=== PATIENT | female | born 1980 | race Caucasian/White ===

== ENCOUNTER 2016-11-02 18:00 | Emergency (ER) | payer MEDICAID ==
[~2016-11-02] VITALS: Ht 170.2 cm; Wt 109.5 kg
[~2016-11-02 18:00] MED LIST: METF-480 PO; NITR-58 PO; PREN1TAB49 PO
[2016-11-02 18:28] VITALS: Ht 170.2 cm; Wt 109.5 kg
[2016-11-02] MEDS ORDERED: CEPH-443 PO (23:27)
[2016-11-02] MEDS ORDERED: IBUP-1542 PO (23:27)
--- NOTE | 2016-11-02 23:29 | ERD ---
ER Documentation Chief Complaint Date/Time DATE: 11/02/16 TIME: 23:28 Chief Complaint mercado x 3 days with ear pain; HPI This 36-year-old female presents with pain in the left lower dental area extending to her left ear and her left side of her face. Complains that her face feels swollen and numb as well. She denies any measured fever although she feels hot and had chills. She denies any cough, sore throat, vomiting, abdominal pain, urinary complaints, neck stiffness, rashes. ROS All systems reviewed and are negative except as per history of present illness. Medications Home Meds Active Scripts Cephalexin* (Keflex*) 500 Mg Capsule, 500 MG PO QID for 10 Days, CAP Prov:SOLIS WARREN MD 11/02/16 Ibuprofen* (Motrin*) 600 Mg Tab, 600 MG PO Q6, #20 TAB Prov:SOLIS WARREN MD 11/02/16 Nitrofurantoin Monohyd Macrocr (Macrobid) 100 Mg Capsr, 100 MG PO BID for 7 Days , #14 CAP 0 Refills Prov:JOSE MARTINEZ PA-C 07/14/15 Reported Medications Metformin* (Glucophage*) 850 Mg Tablet, 850 MG PO, #90 TAB 07/09/15 Vits W-Ca,Fe,Fa(<1MG) () 1 Tab Tablet, 1 TAB PO DAILY 05/04/12 Allergies Allergies: Coded Allergies: No Known Allergy (Unverified , 11/02/16) PMhx/Soc Medical and Surgical Hx: pt denies Medical Hx History of Surgery: Yes () Anesthesia Reaction: No Hx Neurological Disorder: No Hx Respiratory Disorders: No Hx Cardiac Disorders: No Hx Psychiatric Problems: No Hx Miscellaneous Medical Probl: No Hx Alcohol Use: No Hx Substance Use: No Hx Tobacco Use: No Smoking Status: Never smoker Physical Exam Vitals Vital Signs Date Time Temp Pulse Resp B/P Pulse Ox O2 Delivery O2 Flow Rate FiO2 11/02/16 18:28 97.8 64 18 137/87 97 Physical Exam Const: []Alert, not ill-appearing. Head: Atraumatic Eyes: Normal Conjunctiva ENT: Normal External Ears, Nose and Mouth.TMs and oropharynx grossly normal. Is some tenderness along the lateral aspect left lower molar gumline. There is no significant facial swelling or induration. Airways patent. There are some carious teeth in the area of pain. Neck: Full range of motion..~ No meningismus. Resp: Clear to auscultation bilaterally Cardio: Regular rate and rhythm, no murmurs Abd: Soft, non tender, non distended. Normal bowel sounds Skin: No petechiae or rashes Back: No midline or flank tenderness Ext: No cyanosis, or edema Neur: Awake and alert Psych: Normal Mood and Affect Results 24 hrs Current Medications Medications (Trade) Dose Ordered Sig/Nik Route PRN Reason Start Time Stop Time Status Last Admin Dose Admin Ibuprofen (Motrin) 600 mg ONCE ONCE PO 11/02/16 23:30 11/02/16 23:31 Cephalexin (Keflex) 500 mg ONCE ONCE PO 11/02/16 23:30 11/02/16 23:31 Procedures/MDM Patient presents with facial pain and signs of tenderness emanating from the left lower molar dentition likely related to dental infection. There is no signs of abscess, airway obstruction, signs of neurologic deficit or central lesions. Is no signs of sepsis. Patient will treated with Keflex and ibuprofen and dental follow-up and return precautions. The patient was stable with no new complaints during the ER course. Clinically, there is no current evidence to suggest meningitis, sepsis, acute abdomen, pneumonia, acute coronary syndrome, pulmonary embolism, or any other emergent condition appearing to require further evaluation or hospitalization. The patient should certainly return for any new or worsening symptoms per the aftercare instructions. They should otherwise follow-up with her primary care doctor for reevaluation this week. Departure Diagnosis: Primary Impression: Pain, dental Condition: Stable Patient Instructions: Dental Pain Referrals: [facility] ([facility] walk in clinic) Additional Instructions: Symptoms appear to be from dental infection. Recheck for new or worsening symptoms. Follow-up with dentist for the next week. SOLIS WARREN MD Nov 02, 2016 23:29
[2016-11-02] MEDS ORDERED: CEPHALEXIN 500 MG CAP PO ONE (23:30)
[2016-11-02] MEDS ORDERED: IBUPROFEN 600 MG TAB PO ONE (23:30)
[2016-11-02 23:59] VITALS: BP 128/83; PULSE 78; RESP 18; TEMP 98
== END 2016-11-03 00:22 | disposition home or self-care (01) ==
LOC: FTE 18:00
DX: K08.89 Other specified disorders of teeth and supporting structures (principal)
CPT/HCPCS: Z7502; Z7610; 99283

== ENCOUNTER 2018-06-13 16:07 | Emergency (ER) | payer MEDICAID ==
[~2018-06-13] VITALS: Ht 167.6 cm; Wt 88.9 kg
[~2018-06-13 16:07] MED LIST changes: +CEPH-443 PO; +IBUP-1542 PO
[2018-06-13 16:16] VITALS: BP 118/73; PULSE 57; RESP 18; Ht 167.6 cm; Wt 88.9 kg
[2018-06-13] MEDS ORDERED: ACET500C5 PO (17:52)
--- NOTE | 2018-06-13 17:58 | ERD ---
ER Documentation Chief Complaint Chief Complaint pt bib self with c/o head pain s/p falling last wk, HPI 38-year-old female presents with right-sided and occipital headache after having a syncopal episode last week. She states that she is having some nausea and pelvic pain possibly before her menstrual period last week. She got up to use the bathroom and fell forward. She woke up on the floor. She hit her head on the right side and accepted. She is here because she is having persistent headaches and sensation of dizziness. She denies fevers, visual changes, vomiting, shortness of breath, deficits. Her nausea and pelvic pain has subsided. She denies urinary complaints. She denies . Denies shortness of breath, calf swelling, hemoptysis. ROS All systems reviewed and are negative except as per history of present illness. Medications Home Meds Active Scripts Acetaminophen* (Tylophen*) 500 Mg Capsule, 1 CAP PO Q6H PRN for PAIN AND OR ELEVATED TEMP, #20 CAP Prov:SOLIS WARREN MD 06/13/18 Cephalexin* (Keflex*) 500 Mg Capsule, 500 MG PO QID for 10 Days, CAP Prov:SOLIS WARREN MD 11/02/16 Ibuprofen* (Motrin*) 600 Mg Tab, 600 MG PO Q6, #20 TAB Prov:SOLIS WARREN MD 11/02/16 Nitrofurantoin Monohyd Macrocr (Macrobid) 100 Mg Capsr, 100 MG PO BID for 7 Days, #14 CAP 0 Refills Prov:JOSE MARTINEZ PA-C 07/14/15 Reported Medications Metformin* (Glucophage*) 850 Mg Tablet, 850 MG PO, #90 TAB 07/09/15 Vits W-Ca,Fe,Fa(<1MG) () 1 Tab Tablet, 1 TAB PO DAILY 05/04/12 Allergies Allergies: Coded Allergies: No Known Allergy (Unverified , 11/02/16) PMhx/Soc Medical and Surgical Hx: pt denies Medical Hx History of Surgery: Yes () Anesthesia Reaction: No Hx Neurological Disorder: No Hx Respiratory Disorders: No Hx Cardiac Disorders: No Hx Psychiatric Problems: No Hx Miscellaneous Medical Probl: No Hx Alcohol Use: No Hx Substance Use: No Hx Tobacco Use: No Smoking Status: Never smoker Physical Exam Vitals Vital Signs Date Temp Pulse Resp B/P (MAP) Pulse Ox O2 O2 Flow FiO2 Time Delivery Rate 06/13/18 97.9 57 18 118/73 100 16:16 (88) Physical Exam Const: No acute distress Head: Atraumatic. Tenderness on the exhibit without appreciable deformities. Eyes: Normal Conjunctiva. Eyes Ced and extraocular movements intact. ENT: Normal External Ears, Nose and Mouth. Neck: Full range of motion. No meningismus. Neck nontender. Resp: Clear to auscultation bilaterally Cardio: Regular rate and rhythm, no murmurs Abd: Soft, non tender, non distended. Normal bowel sounds Skin: No petechiae or rashes Back: No midline or flank tenderness Ext: No cyanosis, or edema Neur: Awake and alert Psych: Normal Mood and Affect Result Diagram: 06/13/18 1654 06/13/18 1654 Results 24 hrs Laboratory Tests Test 06/13/18 16:51 06/13/18 16:54 06/13/18 16:55 POC Beta HCG, Qualitative NEGATIVE White Blood Count 7.6 10^3/ul Red Blood Count 4.54 10^6/ul Hemoglobin 12.4 g/dl Hematocrit 39.0 % Mean Corpuscular Volume 85.9 fl Mean Corpuscular Hemoglobin 27.3 pg Mean Corpuscular 31.8 g/dl Hemoglobin Concent Red Cell Distribution Width 12.4 % Platelet Count 260 10^3/UL Mean Platelet Volume 11.7 fl Immature Granulocytes % 0.400 % Neutrophils % 54.8 % Lymphocytes % 34.6 % Monocytes % 7.6 % Eosinophils % 2.2 % Basophils % 0.4 % Nucleated Red Blood Cells % 0.0 /100WBC Immature Granulocytes # 0.030 10^3/ul Neutrophils # 4.2 10^3/ul Lymphocytes # 2.6 10^3/ul Monocytes # 0.6 10^3/ul Eosinophils # 0.2 10^3/ul Basophils # 0.0 10^3/ul Nucleated Red Blood Cells # 0.0 10^3/ul Sodium Level 137 mmol/L Potassium Level 4.6 mmol/L Chloride Level 101 mmol/L Carbon Dioxide Level 30 mmol/L Anion Gap 6 Blood Urea Nitrogen 14 mg/dl Creatinine 0.54 mg/dl Est Glomerular Filtrat > 60 mL/min Rate mL/min Glucose Level 291 mg/dl Calcium Level 9.4 mg/dl Urine Color YELLOW Urine Clarity CLOUDY Urine pH 7.0 Urine Specific Bullock 1.035 Urine Ketones TRACE mg/dL Urine Nitrite NEGATIVE mg/dL Urine Bilirubin NEGATIVE mg/dL Urine Urobilinogen 1+ mg/dL Urine Leukocyte Esterase 2+ Shiva/ul Urine Microscopic RBC 1 /HPF Urine Microscopic WBC 14 /HPF Urine Squamous Epithelial Cells MANY /HPF Urine Bacteria FEW /HPF Urine Mucus FEW /HPF Urine Hemoglobin NEGATIVE mg/dL Urine Glucose 3+ mg/dL Urine Total Protein NEGATIVE mg/dl Procedures/MDM Patient presents 1 week after syncopal episode. She has headache due to hitting her head during the syncopal episode. Symptoms of nausea pelvic pain have subsided. She has no current dizziness and no recurrent syncopal episodes since the initial one last week. CBC shows no acute abnormalities. Glucose is elevated although no evidence of acidosis. Urine shows white blood cells, leukocyte esterase trace hemoglobin. hCG negative. EKG: Rate/Rhythm: Normal Sinus Rhythm. Rate equals 59. QRS, ST, T-waves: No changes consistent w/ acute ischemia Impression: No evidence of ischemia or arrhythmia CT brain shows no acute abnormalities. Patient presents with headache after head injury. She likely has mild concussion. Is no signs of neurologic deficits, signs of ketoacidosis, PE, chest pain, abdominal pain, arrhythmia, CHF, shortness of breath. She will be discharged home with Tylenol, recommendations for fluids, primary care follow-up and return precautions. The patient was stable with no new complaints during the ER course. Clinically, there is no current evidence to suggest meningitis, sepsis, acute abdomen, pneumonia, stroke, acute coronary syndrome, pulmonary embolism, aortic dissection or any other emergent condition appearing to require further evaluation or hospitalization. Patient counseled regarding my diagnostic impression and care plan. Prior to discharge all questions answered. Pt agrees with treatment plan and understands strict return precautions. Pt is instructed to follow up with primary care provider within 24-48 hours. Pr ecautionary instructions provided including instructions to return to the ER if not improving or for any worsening or changing symptoms or concerns. Departure Diagnosis: Primary Impression: Syncope Syncope type: unspecified Qualified Codes: R55 - Syncope and collapse Additional Impression: Acute head injury Encounter type: initial encounter Qualified Codes: S09.90XA - Unspecified injury of head, initial encounter Condition: Stable Patient Instructions: What Is Syncope?, HEAD INJURY, No Wake-Up (Adult), Syncope, Vasovagal Additional Instructions: Examinations normal today. Likely vasovagal episode. Drink plenty fluids at home. Check for fevers, vomiting, new worsening symptoms. SOLIS WARREN MD Jun 13, 2018 17:58
== END 2018-06-13 18:12 | disposition home or self-care (01) ==
LOC: FTE 16:07
DX: R55 Syncope and collapse (principal); S09.90XA Unspecified injury of head, initial encounter; R10.2 Pelvic and perineal pain; W01.198A Fall on same level from slipping, tripping and stumbling with subsequent striking against other object, initial encounter; Y92.9 Unspecified place or not applicable; Z79.84 Long term (current) use of oral hypoglycemic drugs
CPT/HCPCS: 70450; 80048; 81001; 81025; 85025; 93005; Z7502